=== PATIENT | male | born 1980 | race African-American/Black ===

== ENCOUNTER 2017-01-20 18:43 | Emergency (ER) | payer BC ==
[~2017-01-20] VITALS: Ht 182.9 cm; Wt 118.2 kg
[2017-01-20 19:22] LABS: MCH 26.4 PG (29.0-34.0); MCHC 32.4 G/DL (30.0-36.0); MCV 81.3 FL (86-99); MEAN PLAT.VOLUME 11.5 uM^3 (9.0-12.4); PLATELET COUNT 199 K/uL (156-360); RED BLOOD COUNT 5.04 M/uL (4.00-5.50); WHITE BLOOD COUNT 10.1 K/uL (4.1-10.2)
[2017-01-20 19:33] LABS: CHLORIDE 104 mEq/L (99-109); POTASSIUM 4.3 mEq/L (3.7-5.4); SODIUM 138 mEq/L (136-147)
[2017-01-20 19:35] LABS: GLUCOSE 113 mg/dL (70-99)
[2017-01-20 19:36] LABS: ANION GAP 11 MEQ/L (2-14)
[2017-01-20 19:37] LABS: TOTAL BILIRUBIN 0.2 mg/dL (0.0-1.0)
[2017-01-20 19:39] LABS: ALKALINE PHOSPHATASE 110 IU/L (3-129); GFR ESTIMATE (CALCULATED) > 59 mL/min/
[2017-01-20 19:40] LABS: UREA NITROGEN (BUN) 11 mg/dL (9-23)
[2017-01-20 19:41] LABS: DIRECT BILIRUBIN 0.1 mg/dL (0.0-0.3)
[2017-01-20 19:42] LABS: LIPASE 16 U/L (1.0-51.0)
[2017-01-20 19:43] LABS: TROP-I INTERPRETATION NEGATIVE; TROPONIN-I < 0.01 ng/mL (0.0-0.30)
[2017-01-20 21:08] LABS: INTERNAL CONTROL VALID? YES; MONOSPOT (MONONUCLEOSIS SEROL) NEGATIVE
[2017-01-20 22:03] VITALS: BP 135/89
== END 2017-01-20 22:05 | disposition home or self-care (01) ==
LOC: EME → EDBD 18:43 → EME 22:05
PROVIDERS: Emergency Medicine
DX: K75.9 Inflammatory liver disease, unspecified (principal); R10.84 Generalized abdominal pain; F17.200 Nicotine dependence, unspecified, uncomplicated; F43.10 Post-traumatic stress disorder, unspecified
CPT/HCPCS: 71020; 74176; 80048; 80076; 83690; 83880; 84484; 85027; 86308; 93005; 99281; 99284; J2405; J7030